=== PATIENT | female | born 1965 | race Caucasian/White ===

== ENCOUNTER 2017-02-03 01:56 | Emergency (ER) | payer SELFPAY ==
[~2017-02-03] VITALS: Ht 172.7 cm; Wt 98.0 kg
[2017-02-03 05:19] LABS: BASOPHILS % 0.4 % (0.0-2.0); EOSINOPHILS % 1.7 % (0.0-5.0); HEMATOCRIT. 36.5 % (36.0-48.0); HEMOGLOBIN. 12.6 g/dL (12.0-16.0); LYMPHOCYTES % 25.9 % (20.0-50.0); MEAN CORPUSCULAR HEMOGLOBIN 30.6 pg (28.0-32.0); MEAN CORPUSCULAR VOLUME 88.6 fL (81.0-99.0); MEAN PLATELET VOLUME 7.9 fl (7.4-10.4); MONOCYTES % 4.8 % (2.0-8.0); NEUTROPHILS % 67.2 % (40.0-76.0); PLATELET 252 x1000/uL (130-400); RED BLOOD CELL COUNT 4.12 mill/uL (4.2-5.4); RED CELL DISTRIBUTION WIDTH 12.9 % (11.6-14.6)
[2017-02-03 05:27] LABS: PROTHROMBIN TIME 10.1 sec (9.4-11.6)
[2017-02-03 05:33] LABS: CARBON DIOXIDE 30 mEq/L (21-32); CHLORIDE 106 mEq/L (98-107)
[2017-02-03] MEDS ORDERED: KETOROLAC 30MG/ML VIAL IV ONE (06:30)
[2017-02-03] MEDS ORDERED: MORPHINE SULFATE 4 MG/ML CPJ (NOT FOR IM USE) IV ONE (06:30)
[2017-02-03 06:57] VITALS: BP 140/75
[2017-02-03 07:11] LABS: CLARITY URINE CLEAR (CLEAR); COLOR URINE YELLOW (YELLOW); GLUCOSE URINE NEGATIVE (NEGATIVE); KETONES URINE NEGATIVE (NEGATIVE); LEUKOCYTE ESTERASE URINE TRACE (NEGATIVE); NITRITE URINE NEGATIVE (NEGATIVE); OCCULT BLOOD URINE 1+ (NEGATIVE); PROTEIN URINE NEGATIVE (NEGATIVE); SPECIFIC GRAVITY URINE 1.011 (1.005-1.030)
== END 2017-02-03 08:25 | disposition home or self-care (01) ==
LOC: ER 01:56
DX: N39.0 Urinary tract infection, site not specified (principal); M54.5 Low back pain
CPT/HCPCS: 36415; 74176; 80053; 81001; 83690; 85025; 85610; 96374; 96375; 99285; J1885; J2270; Z7610

== ENCOUNTER 2017-11-30 14:06 | Inpatient (IN) | payer MEDICAID ==
[~2017-11-30] VITALS: Ht 172.7 cm; Wt 99.8 kg
[2017-11-30 14:54] LABS: BASOPHILS % 0.3 % (0.0-2.0); EOSINOPHILS % 4.8 % (0.0-5.0); HEMATOCRIT. 37.8 % (36.0-48.0); HEMOGLOBIN. 12.9 g/dL (12.0-16.0); LYMPHOCYTES % 22.7 % (20.0-50.0); MEAN CORPUSCULAR HEMOGLOBIN 30.4 pg (28.0-32.0); MEAN PLATELET VOLUME 7.7 fl (7.4-10.4); MONOCYTES % 6.7 % (2.0-8.0); NEUTROPHILS % 65.5 % (40.0-76.0); PLATELET 279 x1000/uL (130-400); RED BLOOD CELL COUNT 4.24 mill/uL (4.2-5.4); RED CELL DISTRIBUTION WIDTH 13.4 % (11.6-14.6)
[2017-11-30 15:02] LABS: CHLORIDE 105 mEq/L (98-107); PROTHROMBIN TIME 10.2 sec (9.4-11.6)
[2017-11-30] MEDS ORDERED: CEFTRIAXONE 1 G PREMIX 50 ML IV ONE (16:45)
[2017-11-30 17:38] LABS: CLARITY URINE CLEAR (CLEAR); COLOR URINE DARK YELLOW (YELLOW); KETONES URINE NEGATIVE (NEGATIVE); LEUKOCYTE ESTERASE URINE 2+ (NEGATIVE); NITRITE URINE NEGATIVE (NEGATIVE); OCCULT BLOOD URINE NEGATIVE (NEGATIVE); PH URINE 5.5 (4.5-8.0); PROTEIN URINE TRACE (NEGATIVE); SPECIFIC GRAVITY URINE 1.025 (1.005-1.030)
[2017-11-30 19:00] VITALS: BP 121/64
[2017-11-30 23:16] VITALS: BP 121/64
[2017-11-30] MEDS ORDERED: HYDROCODONE/ACETAMINOPHEN 5/325MG TABLET PO PRN (23:45)
[2017-11-30] MEDS ORDERED: MORPHINE SULFATE 4 MG/ML CPJ (NOT FOR IM USE) IV PRN (23:45)
[2017-11-30] MEDS ORDERED: ACETAMINOPHEN 325MG TABLET PO PRN (23:45)
[2017-11-30] MEDS ORDERED: IPRATROPIUM/ALBUTEROL 0.5-3(2.5)MG/3ML NEB INH PRN (23:45)
[2017-11-30] MEDS ORDERED: ACETAMINOPHEN 650MG SUPP PR PRN (23:45)
[2017-11-30] MEDS ORDERED: CLONIDINE 0.1MG TABLET PO PRN (23:45)
[2017-11-30] MEDS ORDERED: ACETAMINOPHEN 650MG/20.3ML UDC GT PRN (23:45)
[2017-11-30] MEDS ORDERED: NA PHOS,M-B/NA PHOS,DI-BA ENEMA 118ML PR PRN (23:45)
[2017-11-30] MEDS ORDERED: VANCOMYCIN 1 G PREMIX 200 ML IV SCH (23:45)
[2017-11-30] MEDS ORDERED: MAGNESIUM/ALUMINUM HYDROXIDE/SIMETHICONE 30ML UDC PO PRN (23:45)
[2017-11-30] MEDS ORDERED: ONDANSETRON HCL 4MG/2ML VIAL IV PRN (23:45)
[2017-12-01] VITALS: BP 134/65
[2017-12-01] MEDS: HYDROCODONE/ACETAMINOPHEN 10/325MG TABLET PO PRN ×2 (00:31→08:13)
[2017-12-01] MEDS: DIPHENHYDRAMINE 50MG/ML VIAL IV PRN ×2 (00:33→13:31)
[2017-12-01] MEDS: ENOXAPARIN 30MG/0.3ML SYR SUBCUT SCH ×3 (00:34→21:41)
[2017-12-01] MEDS ORDERED: VANCOMYCIN 1 G PREMIX 200 ML IV SCH (02:00)
[2017-12-01] MEDS: SODIUM CHLORIDE 0.9% INJ 3ML FLUSH IVF SCH ×3 (06:47→21:41)
[2017-12-01 07:10] LABS: BASOPHILS % 0.1 % (0.0-2.0); EOSINOPHILS % 5.6 % (0.0-5.0); HEMOGLOBIN. 12.6 g/dL (12.0-16.0); LYMPHOCYTES % 26.2 % (20.0-50.0); MEAN CORPUSCULAR HEMOGLOBIN 30.7 pg (28.0-32.0); MEAN CORPUSCULAR VOLUME 90.1 fL (81.0-99.0); MEAN PLATELET VOLUME 7.8 fl (7.4-10.4); MONOCYTES % 5.8 % (2.0-8.0); NEUTROPHILS % 62.3 % (40.0-76.0); PLATELET 260 x1000/uL (130-400); RED BLOOD CELL COUNT 4.11 mill/uL (4.2-5.4); RED CELL DISTRIBUTION WIDTH 13.4 % (11.6-14.6)
[2017-12-01 07:56] LABS: CHLORIDE 105 mEq/L (98-107)
[2017-12-01 08:05] LABS: LDL CHOLESTEROL 95 mg/dL (5-100)
[2017-12-01 08:07] LABS: HDL CHOLESTEROL 54 mg/dL (40-59)
[2017-12-01 08:30] VITALS: BP 130/78
[2017-12-01 09:13] LABS: CLARITY URINE CLOUDY (CLEAR); COLOR URINE YELLOW (YELLOW); KETONES URINE NEGATIVE (NEGATIVE); LEUKOCYTE ESTERASE URINE 2+ (NEGATIVE); NITRITE URINE NEGATIVE (NEGATIVE); OCCULT BLOOD URINE TRACE (NEGATIVE); PH URINE 5.5 (4.5-8.0); PROTEIN URINE NEGATIVE (NEGATIVE); SPECIFIC GRAVITY URINE 1.021 (1.005-1.030)
[2017-12-01 10:26] LABS: *BARBITURATES SCREEN URINE NEGATIVE (NEGATIVE)
[2017-12-01 10:27] LABS: *AMPHETAMINES SCREEN URINE NEGATIVE (NEGATIVE); *BENZODIAZEPINES SCREEN URINE NEGATIVE (NEGATIVE); *COCAINE SCREEN URINE NEGATIVE (NEGATIVE); CANNABINOID URINE SCREEN NEGATIVE (NEGATIVE); METHADONE URINE SCREEN NEGATIVE (NEGATIVE); OPIATES URINE SCREEN PRESUMTIVE POSITIVE (NEGATIVE); PHENCYCLIDINE URINE SCREEN NEGATIVE (NEGATIVE)
[2017-12-01 12:00] VITALS: BP 125/71
[2017-12-01] MEDS ORDERED: VANCOMYCIN 1500MG in DEXTROSE 5% WATER 250ML IV NR (15:00)
[2017-12-01 16:00] VITALS: BP 149/68
[2017-12-01 20:00] VITALS: BP 112/60
[2017-12-02] VITALS: BP 124/66
[2017-12-02] MEDS: VANCOMYCIN 1 G PREMIX 200 ML IV SCH ×2 (02:57→14:05)
[2017-12-02 04:00] VITALS: BP 132/76
[2017-12-02] MEDS: SODIUM CHLORIDE 0.9% INJ 3ML FLUSH IVF SCH ×3 (05:49→22:25)
[2017-12-02 08:00] VITALS: BP 131/84
[2017-12-02] MEDS: ENOXAPARIN 30MG/0.3ML SYR SUBCUT SCH ×2 (08:07→20:44)
[2017-12-02] MEDS: DIPHENHYDRAMINE 50MG/ML VIAL IV PRN (08:12)
[2017-12-02 12:00] VITALS: BP 123/65
[2017-12-02] MEDS ORDERED: SULF1TAB48 MT (12:43)
[2017-12-02] MEDS ORDERED: CEPH-569 MT (12:43)
[2017-12-02] MEDS: CLINDAMYCIN 300 MG in DEXTROSE 5% WATER 50 ML IV SCH ×2 (15:50→22:25)
[2017-12-02 16:00] VITALS: BP 125/74
[2017-12-02 17:08] LABS: BASOPHILS % 0.1 % (0.0-2.0); EOSINOPHILS % 5.5 % (0.0-5.0); HEMATOCRIT. 37.2 % (36.0-48.0); HEMOGLOBIN. 12.7 g/dL (12.0-16.0); LYMPHOCYTES % 27.8 % (20.0-50.0); MEAN CORPUSCULAR HEMOGLOBIN 30.6 pg (28.0-32.0); MEAN CORPUSCULAR VOLUME 89.7 fL (81.0-99.0); MEAN PLATELET VOLUME 8.3 fl (7.4-10.4); NEUTROPHILS % 59.6 % (40.0-76.0); PLATELET 283 x1000/uL (130-400); RED BLOOD CELL COUNT 4.15 mill/uL (4.2-5.4); RED CELL DISTRIBUTION WIDTH 13.1 % (11.6-14.6)
[2017-12-02 17:13] LABS: CHLORIDE 104 mEq/L (98-107)
[2017-12-02 20:00] VITALS: BP 126/78
[2017-12-03] VITALS: BP 111/69
[2017-12-03] MEDS: VANCOMYCIN 1 G PREMIX 200 ML IV SCH (03:00)
[2017-12-03 04:00] VITALS: BP_SYST 126; BP_SYST 133; BP_DIAS 60; BP_DIAS 80
[2017-12-03] MEDS: SODIUM CHLORIDE 0.9% INJ 3ML FLUSH IVF SCH ×2 (06:23→14:00)
[2017-12-03] MEDS: CLINDAMYCIN 300 MG in DEXTROSE 5% WATER 50 ML IV SCH (06:27)
[2017-12-03 08:00] VITALS: BP 132/75
[2017-12-03] MEDS: ENOXAPARIN 30MG/0.3ML SYR SUBCUT SCH (09:02)
[2017-12-03] MEDS ORDERED: CLIN300C11 MT (11:28)
[2017-12-03 12:00] VITALS: BP 125/68
[2017-12-03 12:14] LABS: BASOPHILS % 0.3 % (0.0-2.0); EOSINOPHILS % 4.7 % (0.0-5.0); HEMATOCRIT. 37.2 % (36.0-48.0); HEMOGLOBIN. 12.8 g/dL (12.0-16.0); LYMPHOCYTES % 30.1 % (20.0-50.0); MEAN CORPUSCULAR HEMOGLOBIN 30.6 pg (28.0-32.0); MEAN CORPUSCULAR VOLUME 89.1 fL (81.0-99.0); MONOCYTES % 6.6 % (2.0-8.0); NEUTROPHILS % 58.3 % (40.0-76.0); PLATELET 304 x1000/uL (130-400); RED BLOOD CELL COUNT 4.18 mill/uL (4.2-5.4); RED CELL DISTRIBUTION WIDTH 13.3 % (11.6-14.6)
[2017-12-03 12:15] LABS: CHLORIDE 105 mEq/L (98-107)
[2017-12-03] MEDS: HYDROCODONE/ACETAMINOPHEN 10/325MG TABLET PO PRN (12:17)
[2017-12-03 12:33] VITALS: BP 125/68
[2017-12-03] MEDS ORDERED: VANCOMYCIN 1250MG in DEXTROSE 5% WATER 250ML IV SCH ×2 (15:00→16:30)
[2017-12-03 16:00] VITALS: BP 122/70
== END 2017-12-03 17:10 | disposition home or self-care (01) | DRG 383 ==
LOC: ER 14:06 → 6EST 19:03 → EDBEDREQTM 19:07 → EDBEDREQ 19:07 → ENRESERV 19:13
PROVIDERS: ADMIT Family Medicine; ATTEND Family Medicine
DX: L03.115 Cellulitis of right lower limb (principal); E66.01 Morbid (severe) obesity due to excess calories; I10 Essential (primary) hypertension; N39.0 Urinary tract infection, site not specified; Z68.33 Body mass index [BMI] 33.0-33.9, adult
CPT/HCPCS: 36415; 71045; 80053; 80061; 80202; 80305; 81003; 83605; 85025; 85610; 87040; 87086; 93005; 93971; J0696; J1200; J1650; J3370; J3490; J7060

== ENCOUNTER 2017-12-06 07:53 | Emergency (ER) | payer MEDICAID ==
[~2017-12-06] VITALS: Ht 170.2 cm; Wt 96.0 kg
[~2017-12-06 07:53] MED LIST: CLIN300C11 MT
[2017-12-06] MEDS ORDERED: DIPHENHYDRAMINE 50MG/ML VIAL IV ONE (08:15)
[2017-12-06] MEDS ORDERED: METHYLPREDNISOLONE SOD SUCC 125 MG/2 ML VIAL IV ONE (08:15)
[2017-12-06] MEDS ORDERED: FAMOTIDINE 20MG/2ML VIAL IV ONE (08:15)
[2017-12-06] MEDS ORDERED: FLUORESCEIN SODIUM 1MG/STRIP OP ONE (11:30)
[2017-12-06] MEDS ORDERED: TETRACAINE 0.5% OPHTH DROPS 4ML OP ONE (11:30)
[2017-12-06 13:16] VITALS: BP 137/86
== END 2017-12-06 13:16 | disposition home or self-care (01) ==
LOC: ER 08:13
DX: H10.13 Acute atopic conjunctivitis, bilateral (principal); R20.0 Anesthesia of skin; L29.9 Pruritus, unspecified; R07.0 Pain in throat; T37.0X5A Adverse effect of sulfonamides, initial encounter; Y92.098 Other place in other non-institutional residence as the place of occurrence of the external cause; Z98.890 Other specified postprocedural states
CPT/HCPCS: 96374; 96375; 99284; J1200; J2930; J3490; Z7610